=== PATIENT | male | born 1980 | race American Indian/Alaskan Native ===

== ENCOUNTER 2016-08-09 23:35 | Inpatient (IN) | payer OTHER ==
[2016-08-10] MEDS ORDERED: NACL 0.9% 1000 ML 1,000 ML IV ONE
[2016-08-10] MEDS ORDERED: BABY ASPIRIN PO ONE
[2016-08-10] MEDS ORDERED: PLAVIX PO ONE
[2016-08-10] MEDS ORDERED: NITROSTAT SL ONE
[2016-08-10 00:09] LABS: Basophils % (Auto) 0.5 % (0.0-1.8); Eosinophils % (Auto) 4.2 % (0.0-4.3); Hematocrit 42.4 % (35.5-45.6); Hemoglobin 15.1 gm/dl (11.8-15.2); Mean Corpuscular HGB Conc 36 % (32-34); Mean Corpuscular Hemoglobin 32 pg (28-32); Mean Corpuscular Volume 89 fl (84-94); Platelet Count 291 K/mm3 (140-440); Red Blood Count 4.77 M/mm3 (3.65-5.03); Red Cell Distribution Width 12.8 % (13.2-15.2); White Blood Count 11.6 K/mm3 (4.5-11.0)
[2016-08-10] MEDS: HEPARIN IV ONE ×2 (00:17→01:02)
--- NOTE | 2016-08-10 00:18 | Emergency Department Report ---
ED Chest Pain HPI - General Stated Complaint: CHEST PAIN Time Seen by Provider: 08/09/16 23:57 Source: patient Mode of arrival: Ambulatory Limitations: No Limitations - History of Present Illness Initial Comments: This is a 36-year-old male with known coronary artery disease who complains of 2R duration substernal chest pain crushing. He states it feels just like when he had heart attack 2 years ago. Reports just sedentary activities watching [employer] of the time. MD Complaint: chest pain Onset/Timin -: Sudden, hour(s) Onset: during rest Pain Location: substernal Pain Radiation: none Severity: severe Severity scale (0 -10): 10 Quality: heaviness Consistency: constant Improves With: nothing Worsens With: nothing re: denies: nausea, vomting Other Symptoms: denies: fever, syncope Treatments Prior to Arrival: other (tylenol) - Related Data Home Medications Medication Instructions Recorded Confirmed Last Taken Unobtainable 08/10/16 08/10/16 Unknown Allergies Allergy/AdvReac Type Severity Reaction Status Date / Time No Known Allergies Allergy Verified 08/10/16 00:26 MARCIA score - Marcia Score Age > 65: (0) No Aspirin use within the Past 7 Days: (0) No 3 or more CAD Risk Factors: (1) Yes 2 or more Angina events in past 24 hrs: (0) No Known CAD with more than 50% Stenosis: (0) No Elevated Cardiac Markers: (0) No ST Deviation Greater than 0.5mm: (1) Yes MARCIA Score: 2 ED Review of Systems ROS: Stated complaint: CHEST PAIN Other details as noted in HPI Constitutional: denies: chills, fever Eyes: denies: eye pain, eye discharge, vision change ENT: denies: ear pain, throat pain Respiratory: denies: cough, shortness of breath, wheezing Cardiovascular: chest pain. denies: palpitations Endocrine: no symptoms reported Gastrointestinal: denies: abdominal pain, nausea, diarrhea Genitourinary: denies: urgency, dysuria Musculoskeletal: denies: back pain, joint swelling, arthralgia Skin: denies: rash, lesions Neurological: denies: headache, weakness, paresthesias Psychiatric: denies: anxiety, depression Hematological/Lymphatic: denies: easy bleeding, easy bruising ED Past Medical Hx - Past Medical History Hx Hypertension: Yes Additional medical history: cardiomyopthy, high cholesterol - Social History Smoking Status: Current Every Day Smoker Substance Use Type: Alcohol - Medications Home Medications: Home Medications Medication Instructions Recorded Confirmed Last Taken Type Unobtainable 08/10/16 08/10/16 Unknown History ED Physical Exam - General Limitations: No Limitations General appearance: alert, in distress (due to pains) - Head Head exam: Present: atraumatic, normocephalic - Eye Eye exam: Present: normal appearance - ENT ENT exam: Present: mucous membranes moist - Neck Neck exam: Present: normal inspection - Respiratory Respiratory exam: Present: normal lung sounds bilaterally. Absent: respiratory distress - Cardiovascular Cardiovascular Exam: Present: regular rate, normal rhythm. Absent: systolic murmur, diastolic murmur, rubs, gallop - GI/Abdominal GI/Abdominal exam: Present: soft, normal bowel sounds - Rectal Rectal exam: Present: deferred - Extremities Exam Extremities exam: Present: normal inspection - Back Exam Back exam: Present: normal inspection - Neurological Exam Neurological exam: Present: alert, oriented X3 - Psychiatric Psychiatric exam: Present: normal affect, normal mood - Skin Skin exam: Present: warm, dry, intact, normal color. Absent: rash ED Course Vital Signs 08/09/16 08/09/16 08/09/16 23:48 23:50 23:58 Pulse Rate 104 H 104 H 106 H Respiratory 14 16 21 Rate Blood Pressure 145/72 O2 Sat by Pulse 92 93 93 Oximetry 08/10/16 08/10/16 08/10/16 00:00 00:04 00:10 Pulse Rate 105 H 106 H Respiratory 21 14 17 Rate Blood Pressure 126/63 O2 Sat by Pulse 95 100 94 Oximetry 08/10/16 08/10/16 08/10/16 00:17 00:20 00:30 Pulse Rate 102 H 103 H 107 H Respiratory 16 19 Rate Blood Pressure 126/63 121/48 113/48 O2 Sat by Pulse 95 96 Oximetry 08/10/16 08/10/16 08/10/16 00:40 00:50 01:00 Pulse Rate 100 H 99 H 97 H Respiratory 17 17 17 Rate Blood Pressure 113/48 116/53 134/54 O2 Sat by Pulse 96 96 96 Oximetry 08/10/16 08/10/16 08/10/16 01:10 01:20 01:30 Pulse Rate 97 H 94 H 96 H Respiratory 16 17 20 Rate Blood Pressure 134/54 110/35 110/52 O2 Sat by Pulse 96 96 96 Oximetry 08/10/16 08/10/16 08/10/16 01:40 01:50 02:00 Pulse Rate 97 H 95 H 98 H Respiratory 21 15 12 Rate Blood Pressure 110/52 116/50 123/64 O2 Sat by Pulse 93 95 94 Oximetry 08/10/16 08/10/16 08/10/16 02:10 02:20 02:30 Pulse Rate 97 H 96 H Respiratory 13 14 21 Rate Blood Pressure 123/64 104/42 121/52 O2 Sat by Pulse 96 96 97 Oximetry 08/10/16 08/10/16 08/10/16 02:40 02:50 03:00 Pulse Rate Respiratory 18 18 13 Rate Blood Pressure 121/52 120/42 115/42 O2 Sat by Pulse 94 95 94 Oximetry 08/10/16 08/10/16 08/10/16 03:10 03:20 03:30 Pulse Rate Respiratory 13 15 15 Rate Blood Pressure 115/42 103/39 107/44 O2 Sat by Pulse 96 96 95 Oximetry 08/10/16 08/10/16 03:40 03:50 Pulse Rate Respiratory 14 25 H Rate Blood Pressure 107/44 115/45 O2 Sat by Pulse 95 97 Oximetry - Reevaluation(s) Reevaluation #1: 08/10/16 00:19 Patient with an ECG that does demonstrate clear injury pattern. He does not meet criteria for STEMI however. I did speak with Dr. Valverde regarding this patient and he recommended not to go to cath lab tech but aggressive medical treatment with rescue if necessary. Patient given Plavix aspirin nitroglycerin morphine heparin here. Hemodynamically remained stable at this time. ED Medical Decision Making - Lab Data Result diagrams: 08/09/16 23:55 08/09/16 23:55 - EKG Data -: EKG Interpreted by Me (acute posterior infarct pattern noted sinus tachycardic at 105) - EKG Data 08/10/16 06:06 Please see comments under course. - Radiology Data interpreted by me: Normal cardiac silhouette no mediastinal widening Critical care attestation.: If time is entered above; I have spent that time in minutes in the direct care of this critically ill patient, excluding procedure time. ED Disposition Clinical Impression: NSTEMI (non-ST elevated myocardial infarction) Disposition: OP ADMITTED IP TO THIS HOSP Is pt being admited?: Yes Does the pt Need Aspirin: No Condition: Stable Time of Disposition: 01:34
[2016-08-10 00:19] LABS: INR 0.89 (0.87-1.13)
[2016-08-10 00:20] LABS: Partial Thromboplastin Time 30.9 Sec. (24.2-36.6)
[2016-08-10] MEDS ORDERED: HEPARIN ONE (00:25)
[2016-08-10] MEDS ORDERED: HEPARIN 10,000 UNITS/10 ML ONE (00:32)
[2016-08-10 00:41] LABS: Creatine Kinase MB 7.7 ng/mL (0.0-4.0)
[2016-08-10 00:43] LABS: Albumin 3.4 g/dL (3.9-5); Albumin/Globulin Ratio 1.1 %; Alkaline Phosphatase 68 units/L (35-129); Bilirubin,Total 0.2 mg/dL (0.1-1.2); Blood Urea Nitrogen 13 mg/dL (9-20); Calcium 8.1 mg/dL (8.4-10.2); Carbon Dioxide 22 mmol/L (22-30); Chloride 102.2 mmol/L (98-107); Creatine Kinase 284 units/L (55-170); Glucose 105 mg/dL (75-100); Potassium 4.1 mmol/L (3.6-5.0); Sodium 140 mmol/L (137-145); Total Protein 6.4 g/dL (6.3-8.2)
[2016-08-10 00:45] LABS: Anion Gap 20 mmol/L
[2016-08-10] MEDS: HEPARIN/ 0.45% NACL-25,000 UNIT/500 ML 25,000 UNIT/500 ML BAG IV SCH ×2 (01:01→11:27)
[2016-08-10 01:15] LABS: Alanine Aminotransferase < 5 units/L (7-56)
[2016-08-10] MEDS ORDERED: TRIDIL DRIP 50MG/250ML 50 MG/250 ML BOTTLE IV ONE (01:39)
[2016-08-10] MEDS ORDERED: MORPHINE IV ONE ×2 (01:41)
[2016-08-10] MEDS ORDERED: DULCOLAX PR PRN (02:48)
[2016-08-10] MEDS ORDERED: MILK OF MAGNESIA PO PRN (02:48)
[2016-08-10] MEDS ORDERED: ZOFRAN IV PRN (02:48)
--- NOTE | 2016-08-10 02:54 | History and Physical Report ---
History of Present Illness Date of examination: 08/10/16 History of present illness: 36-year-old man with a history of coronary artery disease, hypertension, cardiomyopathy, hyperlipidemia comes emergency room complaints of chest pain. He's been experiencing chest pain over the last 2 weeks but it has worsened over the last 2-3 days. Pain is in the epigastric area which she describes as a sharp pain, constant, intensity 8/10, radiating to the bilateral arms, relieved with nitroglycerin. This pain is worse with activity and better breath. He admits to shortness breath, diaphoresis, no nausea vomiting or palpitation. He had a stress test 2-3 years ago Patient denies cough, abdominal pain, hematochezia, dysuria, frequency, focal weakness, dysarthria, fever chills, polydipsia polyuria, hot or cold intolerance , easy bruisability, or rash or bleeding from mucosal membrane, rhinorrhea, epistaxis, earache, tinnitus, blurry vision, eye discharge, anxiety, depression. Other review of systems negative PAST SURGICAL HISTORY: None SOCIAL HISTORY: Smoke half pack a day, drink on weekends, no drugs FAMILY HISTORY: Hypertension Medications and Allergies Allergies Allergy/AdvReac Type Severity Reaction Status Date / Time No Known Allergies Allergy Verified 08/10/16 00:26 Home Medications Medication Instructions Recorded Confirmed Last Taken Type Carvedilol [Coreg] 3.125 mg PO BID #30 tablet 08/11/16 Unknown Rx Lisinopril [Zestril TAB] 2.5 mg PO QDAY #30 tablet 08/11/16 Unknown Rx Active Meds: Active Medications Heparin Sodium/Sodium Chloride (Heparin/ 0.45% Nacl-25,000 Unit/500 Ml) 25,000 unit in 500 mls @ 20 mls/hr IV TITRATE WILDA; 1,000 UNITS/HR PRN Reason: Protocol Last Admin: 08/10/16 01:01 Dose: 1,000 units/hr, 20 mls/hr Nitroglycerin/Dextrose (Tridil Drip 50mg/250ml) 50 mg in 250 mls @ 3 mls/hr IV TITR ONE; 10 MCG/MIN PRN Reason: Protocol Stop: 08/13/16 12:58 Last Admin: 08/10/16 02:39 Dose: Not Given Exam - Physical Exam Narrative exam: Gen. appearance: Patient lying in bed, no apparent distress HEENT: Normocephalic, atraumatic, pupils equally round and reactive to light, extraocular movement intact, and no sclericterus,. No JVD or thyromegaly or nodule,neck supple, no carotid bruit ,mucous membranes moist, no exudate or erythema Heart: S1, S2, regular rate and rhythm Lungs: Clear to auscultation bilaterally, breathing comfortable Abdomen: Positive bowel sounds, nontender, nondistended, no organomegaly Extremity: No edema, cyanosis, clubbing Skin: No rash, nodules, warm, dry Neuro: Oriented 3, cranial nerves II-12 intact, speech is fluent, motor and sensory intact - Constitutional Vitals: Temp Pulse Resp BP Pulse Ox 96 H 14 104/42 96 08/10/16 02:20 08/10/16 02:20 08/10/16 02:20 08/10/16 02:20 Results - Labs CBC & Chem 7: 08/11/16 07:23 08/11/16 07:23 Labs: Abnormal lab results 08/09/16 08/09/16 08/09/16 Range/Units 23:55 23:55 23:55 WBC 11.6 H (4.5-11.0) K/mm3 MCHC 36 H (32-34) % RDW 12.8 L (13.2-15.2) % Lymph % (Auto) 36.9 H (13.4-35.0) % Eos # 0.5 H (0.0-0.4) K/mm3 PT 11.9 L (12.2-14.9) Sec. Glucose 105 H (75-100) mg/dL Calcium 8.1 L (8.4-10.2) mg/dL ALT < 5 L (7-56) units/L Total Creatine Kinase 284 H (55-170) units/L CK-MB (CK-2) 7.7 H (0.0-4.0) ng/mL Albumin 3.4 L (3.9-5) g/dL - Imaging and Cardiology EKG: image reviewed Chest x-ray: image reviewed Assessment and Plan Non-STEMI Coronary artery disease Hypertension Cardiomyopathy Hyperlipidemia Admits medicine Continue heparin drip Start aspirin, beta milvia, LUZ inhibitor, consult cardiology Check cardiac enzymes, start IV morphine, Zofran, DVT prophylaxis initiated
--- NOTE | 2016-08-10 04:33 | Admit Criteria Form ---
Admission Criteria Documentation: MYOCARDIAL INFARCTION Clinical Indications for Admission to Inpatient Care (Place 'X' for any and all applicable criteria): Admission is indicated for ANY ONE of the following (1)(2)(3)(4): [X ]I. Acute LA [ ]II. Contraindications and/or Inappropriate clinical situations for Observational Care in patients with Myocardial Infarction, when ANY ONE of the following is required: [ ]a) Patient with High risk of cardiac embolism (e.g, patients with previous cardiac embolism, LVEF < 40%, age >75 and patients with prosthetic valve) 18 [ ]b) Patient with Moderate risk including DM patient, CAD and patient aged 65-75 18 [ ]c) Patient with any change in cardiac biomarker especially troponin should be managed as high risk in an inpatient setting 19 [ ]d) Physician judgement irrespective of ECG and other diagnostic findings 20 [ ]III.General contraindications and/or Inappropriate clinical situations for Observational Care in patients with Myocardial Infarction, when ANY ONE of the following is required: [ ]a) Prediction of prolongation of LOS based on ANY ONE of the following may be considered as a contraindication for observational care 2, 3, 4, 5, 6, 7, 8, 9, 10, 11 [ ]i) Age > 65 yrs. [ ]ii) Patient arriving by ambulance [ ]iii) Patient with high acuity [ ]iv) Patient requiring vital sign monitoring [ ]v) Patient on IV medication [ ]b) Systolic blood pressures 180mmHg 3,12 [ ]c) Patient with altered mental status including delirium and other alteration of consciousness, (3) [ ]d) Patient whose discharge disposition will be to a [place] [facility] home or rehabilitation home should not be managed in Emergency Department Observation Unit. CMS rule requires 3 days hospital stay before such placement. 3,13 [ ]e) Patient with failure to thrive due to broad array of etiologies 3 ,16,17 [ ]f) Inability to ambulate 3,14 Extended stay beyond goal length of stay may be needed for (1)(18)(20)(24)(25): [ ]a) Hemodynamic instability, persisting symptoms after intensive medical management, or recurring severe, prolonged symptoms [ ]b) Intravascular procedural complications such as acute vessel closure, stent thrombosis, stent malposition, or vessel dissection (26)(27)(28) [ ]c) Extravascular procedural complications such as retroperitoneal hematoma , pericardial effusion, or cardiac tamponade [ ]d) Entry site complications causing bleeding, hematoma or distal ischemia and requiring ongoing monitoring, surgical repair or surgical thrombectomy(29) [ ]e) Dangerous arrhythmia [ ]f) Complicated percutaneous coronary intervention (e.g., unsuccessful percutaneous coronary intervention or percutaneous coronary intervention of non- [place] vessel) [ ]g) Urgent or emergent surgery for complications of LA (e.g., ventricular rupture, valvular insufficiency) [ ]h) Surgical revascularization via coronary artery bypass graft [ ]i) Heart failure (e.g., pulmonary edema) [ ]j) Unstable pulmonary comorbidities, including COPD or pneumonia (31) [ ]k) Acute renal failure The original [employer] content created by [employer] has been revised. The portions of the content which have been revised are identified through the use of italic text or in bold, and [employer] has neither reviewed nor approved the modified material. All other unmodified content is copyright [facility] [employer] Please see references footnoted in the original [facility] [employer] edition 2016 Admission Criteria Met: Yes
[2016-08-10] MEDS: MORPHINE IV PRN ×2 (07:15→21:20)
[2016-08-10 07:29] LABS: Creatine Kinase MB 6.5 ng/mL (0.0-4.0)
[2016-08-10 07:32] LABS: Creatine Kinase 239 units/L (55-170)
--- NOTE | 2016-08-10 07:41 | XRay Report ---
AP CHEST: HISTORY: chest pain There is poor inspiration. AP view of the chest demonstrates a normal mediastinal and cardiac contour with clear lungs and normal bony and soft tissue structures. IMPRESSION: Unremarkable AP chest.
[2016-08-10] MEDS: ZESTRIL PO SCH (09:40)
[2016-08-10] MEDS: COREG PO SCH ×2 (09:40→21:18)
--- NOTE | 2016-08-10 11:17 | Consultation ---
History of Present Illness Consult date: 08/10/16 Consult reason: chest pain History of present illness: This is a 36yr old with a history of apical variant hypertrophic cardiomyopathy who presented with complaints of chest pain. He associates chest pain with shortness of breath, palpitations and dizziness intermittent for 2 weeks. He denies syncope. An ECG shows a sinus rhythm with LVH. Cardiac consultation requested for chest pain. Patient is known to [facility]. but has been lost to outpatient follow up. He has had extensive cardiac workup at [place] late 2012. A cardiac cath reports no significant coronary disease. LVEF of 70% documented by echocardiogram. Medications and Allergies Allergies Allergy/AdvReac Type Severity Reaction Status Date / Time No Known Allergies Allergy Verified 08/10/16 00:26 Home Medications Medication Instructions Recorded Confirmed Last Taken Type Unobtainable 08/10/16 08/10/16 Unknown History Active Meds: Active Medications Acetaminophen (Tylenol) 650 mg PO Q4H PRN PRN Reason: Pain MILD(1-3)/Fever >100.5/STEIN Aspirin (Aspirin) 325 mg PO QDAY [facility] Bisacodyl (Dulcolax) 10 mg NM QDAY PRN PRN Reason: Constipation unrelieved by MOM Carvedilol (Coreg) 3.125 mg PO BID [facility] Last Admin: 08/10/16 09:40 Dose: 3.125 mg Heparin Sodium/Sodium Chloride (Heparin/ 0.45% Nacl-25,000 Unit/500 Ml) 25,000 unit in 500 mls @ 20 mls/hr IV TITRATE WILDA; 1,000 UNITS/HR PRN Reason: Protocol Last Admin: 08/10/16 01:01 Dose: 1,000 units/hr, 20 mls/hr Lisinopril (Zestril) 2.5 mg PO QDAY [facility] Last Admin: 08/10/16 09:40 Dose: 2.5 mg Magnesium Hydroxide (Milk Of Magnesia) 30 ml PO Q4H PRN PRN Reason: Constipation Morphine Sulfate (Morphine) 2 mg IV Q4H PRN PRN Reason: Pain, Moderate (4-6) Last Admin: 08/10/16 07:15 Dose: 2 mg Ondansetron HCl (Zofran) 4 mg IV Q8H PRN PRN Reason: N/V unrelieved by Reglan Physical Examination Vital Signs Pulse Resp Pulse Ox 104 H 14 92 08/09/16 23:48 08/09/16 23:48 08/09/16 23:48 General appearance: no acute distress HEENT: Positive: PERRL Neck: Positive: trachea midline Cardiac: Positive: Reg Rate and Rhythm Lungs: Positive: Decreased Breath Sounds Neuro: Positive: Grossly Intact Results 08/09/16 23:55 08/09/16 23:55 Cardiac Enzymes 08/10/16 Range/Units 06:33 CK-MB (CK-2) 6.5 H (0.0-4.0) ng/mL EKG interpretations - Telemetry EKG Rhythm: Sinus Rhythm Assessment and Plan Chest pain Hx of Apical Variant Hypertrophic cardiomyopathy EF 70% on echo 05/2013 Abnormal ECG C 05/2013: no significant coronary disease Will get a stress thallium tomorrow morning for cardiac evaluation.
[2016-08-10] MEDS: TYLENOL PO PRN ×2 (11:37→17:45)
[2016-08-10 13:35] LABS: Creatine Kinase MB 7.2 ng/mL (0.0-4.0)
[2016-08-10 13:37] LABS: Creatine Kinase 225 units/L (55-170)
[2016-08-10] MEDS ORDERED: HABITROL TD SCH (21:00)
[2016-08-11] MEDS: MORPHINE IV PRN (03:12)
[2016-08-11 08:05] LABS: Basophils % (Auto) 0.5 % (0.0-1.8); Eosinophils % (Auto) 4.4 % (0.0-4.3); Hemoglobin 14.3 gm/dl (11.8-15.2); Mean Corpuscular HGB Conc 35 % (32-34); Mean Corpuscular Hemoglobin 31 pg (28-32); Mean Corpuscular Volume 90 fl (84-94); Platelet Count 228 K/mm3 (140-440); Red Blood Count 4.57 M/mm3 (3.65-5.03); Red Cell Distribution Width 13.1 % (13.2-15.2)
[2016-08-11 08:52] LABS: Anion Gap 14 mmol/L; BUN/Creatinine Ratio 12.22; Blood Urea Nitrogen 11 mg/dL (9-20); Carbon Dioxide 25 mmol/L (22-30); Chloride 106.6 mmol/L (98-107); Glucose 101 mg/dL (75-100); Potassium 3.9 mmol/L (3.6-5.0); Sodium 142 mmol/L (137-145)
[2016-08-11] MEDS ORDERED: LEXISCAN IV ONE ×2 (09:44→09:48)
[2016-08-11] MEDS ORDERED: ASPIRIN PO SCH (10:00)
[2016-08-11] MEDS: ZESTRIL PO SCH (11:47)
[2016-08-11] MEDS: COREG PO SCH (11:48)
[2016-08-11] MEDS: TYLENOL PO PRN (11:48)
--- NOTE | 2016-08-11 11:59 | Treadmill Report ---
THALLIUM STRESS TEST LEFT VENTRICLE: Left ventricular chamber size is within normal. Perfusion study demonstrates homogeneous uptake of the tracer in all segments, no significant defects identified. Gated analysis demonstrates left ventricular systolic function at the lower limits of normal, ejection fraction calculated at 47%. CONCLUSION: Normal myocardial perfusion study. [facility]# [id number] [place]/NTS
--- NOTE | 2016-08-11 13:03 | Progress Note ---
Assessment and Plan - Patient Problems (1) Hypertrophic cardiomyopathy Current Visit: Yes Status: Acute Plan to address problem: The patient has an atypical variant trophic cardiomyopathy. This will be his major cardiac morbidity. We'll get electrophysiologic consultation and strongly recommend that he maintains outpatient follow-up with the director dance. (2) Chest pain Current Visit: Yes Status: Acute Qualifiers: Chest pain type: C Plan to address problem: Patient's Persantine thallium stress test which was done for atypical chest pain is normal. It will be recalled that cardiac catheterization done 3 years ago also reported no significant coronary disease. No further cardiac ischemic workup is indicated. Subjective Date of service: 08/11/16 Interval history: Patient underwent a Persantine thallium stress test today, results are normal. Objective Vital Signs Temp Pulse Pulse Pulse Pulse Resp BP 08/11/16 11:48 80 80 14 135/88 08/11/16 11:47 135/88 08/11/16 09:37 98.2 F 82 18 08/11/16 04:00 97.6 F 73 20 08/11/16 00:48 97.7 F 78 20 08/10/16 21:20 18 08/10/16 20:58 98.2 F 80 20 08/10/16 20:46 84 08/10/16 16:32 97.5 F L 88 18 08/10/16 13:05 89 85 16 BP BP Pulse Ox 08/11/16 11:48 135/88 08/11/16 11:47 08/11/16 09:37 127/73 98 08/11/16 04:00 124/72 97 08/11/16 00:48 119/56 98 08/10/16 21:20 08/10/16 20:58 123/63 94 08/10/16 20:46 98 08/10/16 16:32 133/67 91 08/10/16 13:05 143/80 - Physical Examination General: Appears Well, No Apparent Distress HEENT: Positive: PERRL Neck: Positive: trachea midline Cardiac: Positive: Reg Rate and Rhythm Lungs: Positive: clear to auscultation Neuro: Positive: Grossly Intact Abdomen: Positive: Soft Skin: Positive: Clear Extremities: Absent: edema - Labs and Meds Cardiac Enzymes 08/10/16 Range/Units 12:50 CK-MB (CK-2) 7.2 H (0.0-4.0) ng/mL CBC 08/11/16 Range/Units 07:23 WBC 8.0 (4.5-11.0) K/mm3 RBC 4.57 (3.65-5.03) M/mm3 Hgb 14.3 (11.8-15.2) gm/dl Hct 41.0 (35.5-45.6) % Plt Count 228 (140-440) K/mm3 Lymph # 2.8 (1.2-5.4) K/mm3 [place] # 0.6 (0.0-0.8) K/mm3 Eos # 0.4 (0.0-0.4) K/mm3 Baso # 0.0 (0.0-0.1) K/mm3 Comprehensive Metabolic Panel 08/11/16 Range/Units 07:23 Sodium 142 (137-145) mmol/L Potassium 3.9 (3.6-5.0) mmol/L Chloride 106.6 (98-107) mmol/L Carbon Dioxide 25 (22-30) mmol/L BUN 11 (9-20) mg/dL Creatinine 0.9 (0.8-1.5) mg/dL Glucose 101 H (75-100) mg/dL Calcium 8.0 L (8.4-10.2) mg/dL - Imaging and Cardiology EKG: image reviewed
--- NOTE | 2016-08-11 14:15 | Consultation ---
History of Present Illness Consult date: 08/11/16 Consult reason: chest pain History of present illness: 36 YO man with h/o apical variant hypertrophic cardiomyopathy. He was previously evaluated in the office but has been lost to f/u. He is currently hsopitalized due to to atypical chest pain. He has not had any episodes of syncope or pre-syncope. He underwent stress test today and results are pending. Brief episode of NSVT has been noted during current hospitalization. Unfortunately he has been non-compliant with f/u and with medical therapy. He was off all medications at time of admission. Previous risk stratification included 30 day event monitor which did not capture any significant arrhythmias. Previous coronary angiogram had revealed no significant CAD Past History Past Medical History: hypertension, other (hypertrophic cardiomyopathy) Social history: denies: smoking, alcohol abuse Family history: other (sudden in maternal aunt, no history of sudden in first degree relatives) Medications and Allergies Allergies Allergy/AdvReac Type Severity Reaction Status Date / Time No Known Allergies Allergy Verified 08/10/16 00:26 Home Medications Medication Instructions Recorded Confirmed Last Taken Type Unobtainable 08/10/16 08/10/16 Unknown History Active Meds: Active Medications Acetaminophen (Tylenol) 650 mg PO Q4H PRN PRN Reason: Pain MILD(1-3)/Fever >100.5/STEIN Last Admin: 08/11/16 11:48 Dose: 650 mg Aspirin (Aspirin) 325 mg PO QDAY [facility] Last Admin: 08/11/16 11:47 Dose: 325 mg Bisacodyl (Dulcolax) 10 mg [place] QDAY PRN PRN Reason: Constipation unrelieved by MOM Carvedilol (Coreg) 3.125 mg PO BID [facility] Last Admin: 08/11/16 11:48 Dose: 3.125 mg Heparin Sodium/Sodium Chloride (Heparin/ 0.45% Nacl-25,000 Unit/500 Ml) 25,000 unit in 500 mls @ 20 mls/hr IV TITRATE WILDA; 1,000 UNITS/HR PRN Reason: Protocol Last Admin: 08/10/16 11:27 Dose: 1,200 units/hr, 24 mls/hr Lisinopril (Zestril) 2.5 mg PO QDAY [facility] Last Admin: 08/11/16 11:47 Dose: 2.5 mg Magnesium Hydroxide (Milk Of Magnesia) 30 ml PO Q4H PRN PRN Reason: Constipation Morphine Sulfate (Morphine) 2 mg IV Q4H PRN PRN Reason: Pain, Moderate (4-6) Last Admin: 08/11/16 03:12 Dose: 2 mg Nicotine (Habitrol) 21 mg TD QDAY@2200 WILDA Last Admin: 08/10/16 21:19 Dose: 21 mg Ondansetron HCl (Zofran) 4 mg IV Q8H PRN PRN Reason: N/V unrelieved by Reglan Review of Systems All systems: negative (per hpi) Physical Examination Vital Signs Pulse Resp Pulse Ox 104 H 14 92 08/09/16 23:48 08/09/16 23:48 08/09/16 23:48 General appearance: no acute distress HEENT: Positive: PERRL, EOMI Cardiac: Positive: Reg Rate and Rhythm. Negative: Systolic Murmur Lungs: Positive: clear to auscultation Neuro: Positive: Grossly Intact Abdomen: Positive: Soft, Active Bowel Sounds Skin: Positive: Clear Extremities: Absent: edema Results 08/11/16 07:23 08/11/16 07:23 CBC 08/11/16 Range/Units 07:23 WBC 8.0 (4.5-11.0) K/mm3 RBC 4.57 (3.65-5.03) M/mm3 Hgb 14.3 (11.8-15.2) gm/dl Hct 41.0 (35.5-45.6) % Plt Count 228 (140-440) K/mm3 Lymph # 2.8 (1.2-5.4) K/mm3 [place] # 0.6 (0.0-0.8) K/mm3 Eos # 0.4 (0.0-0.4) K/mm3 Baso # 0.0 (0.0-0.1) K/mm3 Comprehensive Metabolic Panel 08/11/16 Range/Units 07:23 Sodium 142 (137-145) mmol/L Potassium 3.9 (3.6-5.0) mmol/L Chloride 106.6 (98-107) mmol/L Carbon Dioxide 25 (22-30) mmol/L BUN 11 (9-20) mg/dL Creatinine 0.9 (0.8-1.5) mg/dL Glucose 101 H (75-100) mg/dL Calcium 8.0 L (8.4-10.2) mg/dL Assessment and Plan Apical variant hypertrophic cardiomyopathy Brief episode of NSVT Htn Atypical chest pain Medical noncompliance Recommend: Titrate beta milvia to maximal tolerated dose Outpatient follow up with me for further risk stratification including possible cardiac MRI
--- NOTE | 2016-08-11 15:50 | Discharge Summary ---
Providers - Providers Date of Admission: 08/10/16 02:49 Date of discharge: 08/11/16 Attending physician: KORI CRANE MD Primary care physician: JENNIFER ESCOBEDO MD Hospitalization Reason for admission: Chest pain, NSTEMI Condition: Stable Pertinent studies: Cardiac stress test Hospital course: 36 YO man with h/o apical variant hypertrophic cardiomyopathy admitted for atypical chest pain. He has not had any episodes of syncope or pre-syncope. Brief episode of NSVT has been noted during current hospitalization. He has been non-compliant with f/u and with medical therapy. He was off all medications at time of admission. Previous risk stratification included 30 day event monitor which did not capture any significant arrhythmias. Previous coronary angiogram had revealed no significant CAD. He underwent stress test today and negative for ischemia. Cardiology/ EP was consulted and recommended to titrate his beta milvia and have follow up with EP for further workup and management. Patient was stable by the time of discharge. He was discharged with BB. Disposition: DISCHARGED TO HOME OR SELFCARE Time spent for discharge: 31 minutes - Discharge Diagnoses (1) Chest pain Status: Acute Qualifiers: Chest pain type: C (2) Hypertrophic cardiomyopathy Status: Acute (3) NSTEMI (non-ST elevated myocardial infarction) Status: Acute Core Measure Documentation - Palliative Care Palliative Care/ Comfort Measures: Not Applicable - Core Measures Any of the following diagnoses?: none Exam - Physical Exam Narrative exam: Not in cardiopulmonary distress. The patient appeared well nourished and normally developed. Vital signs as documented. Head exam is unremarkable. No scleral icterus . Neck is without jugular venous distension, thyromegaly, or carotid bruits. Lungs are clear to auscultation. Cardiac exam reveals regular rate and Rhythm. First and second heart sounds normal. No murmurs, rubs or gallops. Abdominal exam reveals normal bowel sounds, no masses, no organomegaly and no aortic enlargement. Extremities are nonedematous and both femoral and pedal pulses are normal. LOCOMOTIVE ELECTRICIAN: Alert and oriented 3. No focal weakness. - Constitutional Vitals: Temp Pulse Resp BP Pulse Ox 97.0 F L 89 18 126/58 95 08/11/16 13:20 08/11/16 13:20 08/11/16 13:20 08/11/16 13:20 08/11/16 13:20 Plan Diet: low cholesterol, low salt Follow up with: PRIMARY CAREMD [Primary Care Provider] - 7 Days ZEV GUTIERREZ MD [Staff Physician] - 7 Days (please schedule him To see Dr Gutierrez in 1 week.) Forms: Work/School Release Form Prescriptions: Carvedilol [Coreg] 3.125 mg PO BID #30 tablet Lisinopril [Zestril TAB] 2.5 mg PO QDAY #30 tablet
[2016-08-12 10:58] VITALS: BP 136/76
== END 2016-08-11 17:14 | disposition home or self-care (01) | DRG 281 ==
LOC: ED 23:35 → 4A 08-10 02:49
PROVIDERS: ADMIT Internal Medicine; ATTEND Internal Medicine
DX: I21.4 Non-ST elevation (NSTEMI) myocardial infarction (principal); I42.2 Other hypertrophic cardiomyopathy; I47.2 Ventricular tachycardia; I25.10 Atherosclerotic heart disease of native coronary artery without angina pectoris; I25.2 Old myocardial infarction; I10 Essential (primary) hypertension; F17.210 Nicotine dependence, cigarettes, uncomplicated; E78.5 Hyperlipidemia, unspecified; I51.7 Cardiomegaly; R07.89 Other chest pain; Z82.49 Family history of ischemic heart disease and other diseases of the circulatory system; Z91.14 Patient's other noncompliance with medication regimen
CPT/HCPCS: 36415; 71010; 78452; 80048; 80053; 82550; 82553; 84484; 85025; 85520; 85610; 85730; 93005; 93010; 93017; 94760; 96361; 96374; 99406; A9502; J1644; J2270; J2785; J7030